=== PATIENT | female | born 1940 | race African-American/Black ===

== ENCOUNTER 2022-09-04 07:49 | Outpatient (CLI) | payer MEDICARE, MEDICAID ==
[2022-09-04] MEDS ORDERED: Iopamidol 370 76% 100 ML VIAL ONE (10:07)
== END 2022-09-04 07:50 | disposition home or self-care (01) ==
LOC: CSHCT 07:49
PROVIDERS: ATTEND Physician Assistant
DX: I65.23 Occlusion and stenosis of bilateral carotid arteries (principal); I77.1 Stricture of artery
CPT/HCPCS: 36415; 70498; 80048; 83970; 85025; 85610; 85730; Q9967

== ENCOUNTER 2023-12-07 09:52 | Outpatient (CLI) | payer MEDICARE, MEDICAID | END 2023-12-07 09:53 | disposition home or self-care (01) | LOC: CSHCP 09:52 | PROVIDERS: ATTEND Radiology Radiation Oncology | DX: C34.11 Malignant neoplasm of upper lobe, right bronchus or lung (principal) | CPT/HCPCS: 94010; 94726; 94729; 94760 ==

== ENCOUNTER 2024-04-04 09:24 | Outpatient (CLI) | payer MEDICARE, MEDICAID ==
[2024-04-04] MEDS ORDERED: Magnevist 469MG/ML 20 ML VIAL ONE (10:02)
== END 2024-04-04 09:25 | disposition home or self-care (01) ==
LOC: CSHMRI 09:24
PROVIDERS: ATTEND Radiology Radiation Oncology
DX: C79.31 Secondary malignant neoplasm of brain (principal)
CPT/HCPCS: 36415; 70553; 76376; 82565